=== PATIENT | female | born 1985 | race Hispanic/Latino ===

== ENCOUNTER 2021-05-31 11:00 | Day surgery (SDC) | payer OTHER, SELFPAY ==
[2021-05-31] MEDS ORDERED: METHOTREXATE 75 MG/3 ML SYR IM ONE (12:00)
[2021-05-31 13:48] VITALS: O2SAT 100; BMI 29.8
[2021-05-31 13:51] VITALS: BP 113/70; TEMP 98.3
== END 2021-05-31 13:45 | disposition home or self-care (01) ==
LOC: DS 11:00
PROVIDERS: ATTEND Obstetrics & Gynecology
DX: O00.80 Other ectopic pregnancy without intrauterine pregnancy (principal)
CPT/HCPCS: 96372; J9260

== ENCOUNTER 2021-06-11 16:40 | Inpatient (IN) | payer OTHER, SELFPAY ==
[2021-06-11 17:21] LABS: Urine Blood 2+ (Negative); Urine Glucose Negative (Negative); Urine Protein Negative (Negative); Urine Specific Gravity 1.025 (1.005-1.030)
[2021-06-11 17:47] LABS: Absolute Lymphocytes (CBC) 1.6 K/uL (0.7-4.9); Basophils % 0.3 % (0-1.3); Hematocrit 41.6 % (36.0-45.0); Lymphocytes % 12.8 % (15.3-44.8); MPV 7.8 fL (7.6-11.3)
[2021-06-11 18:42] LABS: Potassium 3.5 mmol/L (3.5-5.1)
[2021-06-11 18:45] LABS: Urine Specific Gravity/Preg 1.025 (1.005-1.030)
--- NOTE | 2021-06-11 18:48 | RAD REPORT ---
EXAM DESCRIPTION: US - Pelvis Complete - 06/11/2021 6:14 pm CLINICAL HISTORY: diagnosed tubal , s/p methotrexate, abd pain Pelvic pain. COMPARISON: No comparisons FINDINGS: The uterus is normal in size, shape and echotexture. The uterus measures 8.5 x 5.3 x 4.5 c m. The endometrial stripe measures 11 mm, normal. Both ovaries are normal in size, shape and echotexture. The right ovary measures 2.0 x 1.9 x 2.0 cm. The left ovary measures 2.3 x 1.8 x 1.7 cm. 2.9 x 2.9 x 3.0 cm complex solid cystic left adnexal ma ss noted with peripheral blood flow. Normal Doppler blood flow was demonstrated to both ovaries. No significant pelvic ascites. IMPRESSION: 3.0 cm complex left adnexal mass noted most compatible with ectopic .No pelvic ascites.
--- NOTE | 2021-06-11 19:26 | EDPHYS ---
Physician Documentation [facility] Name: Kiya Rivera Age: 36 yrs Sex: Female : 1985 Arrival Date: 06/11/2021 Time: 16:41 Bed 13 Private MD: Sue Martino K ED Physician Daniel Sullivan HPI: 06/11 17:09 This 36 yrs old Female presents to ER via Ambulatory with complaints of rn Vaginal Bleeding, + Preg <12wks, Pelvic Pain. 17:09 The patient presents to the emergency department with abdominal pain, of the suprapubic rn area and left lower quadrant, that started vaginal bleeding. 17:10 The estimated gestational age is 8 weeks. course: care: private OB rn physician, Leakage of Fluid: none appreciated, Ultrasound: the patient had an ultrasound. Previous pregnancies: the patient has never been . The patient has not experienced similar symptoms in the past. The patient has been recently seen by a physician:. Patient reports received methotrexate 2 weeks ago for ectopic , was thought to be proximal left tubal implantation. Denies any abdominal pain or vaginal bleeding for the preceding 2 weeks after the shot but began to have small vaginal bleeding and increased left lower quadrant sharp pain that began today. No trauma. No fever. No urinary symptoms.. 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 - Social history:: Smoking status: Patient reports the use of cigarette tobacco products, denies chronic smoking, but will smoke occasionally, Smoking status: Patient reports the use of cigarette tobacco products, Patient uses street drugs, marijuana. - Family history:: not pertinent. - Hospitalizations: : No recent hospitalization is reported. ROS: 17:10 Constitutional: Negative for fever, chills, and weight loss, Eyes: Negative for injury, rn pain, redness, and discharge, Neck: Negative for injury, pain, and swelling, Cardiovascular: Negative for chest pain, palpitations, and edema, Respiratory: Negative for shortness of breath, cough, wheezing, and pleuritic chest pain, Abdomen/GI: + for abd pain and vaginal bleeding Back: Negative for injury and pain, : + vaginal bleeding MS/Extremity: Negative for injury and deformity, Skin: Negative for injury, rash, and discoloration, Neuro: Negative for headache, weakness, numbness, tingling, and seizure. Exam: 17:10 Constitutional: This is a well developed, well nourished patient who is awake, alert, rn apperas uncomfortable Head/Face: Normocephalic, atraumatic. Eyes: Periorbital areas with no swelling, redness, or edema. Cardiovascular: Regular rate and rhythm. No pulse deficits. Respiratory: Speaking full sentences. No increased work of breathing, no retractions or nasal flaring. Abdomen/GI: soft, + suprapubic and LLQ tenderness, no rebound. Skin: Warm, dry MS/ Extremity: Pulses equal, no cyanosis. Neuro: Awake and alert, GCS 15 Vital Signs: 16:48 BP 137 / 75; Pulse 85; Resp 18; Temp 97.7(T); Pulse Ox 100% ; Weight 83.91 kg; Height 5 6 ft. 6 in. (167.64 cm); Pain 10/10; 17:42 BP 109 / 56; Pulse 65; Resp 15; Pulse Ox 100% ; Pain 8/10; eo2 19:00 BP 98 / 55; Pulse 74; Resp 15; Pulse Ox 100% ; Pain 2/10; eo2 21:34 BP 105 / 56; Pulse 56; Resp 16 S; Temp 98.1(O); Pulse Ox 100% on R/A; Pain 0/10; bb 16:48 Body Mass Index 29.86 (83.91 kg, 167.64 cm) 6 MDM: 17:01 Patient medically screened. rn 17:10 Differential diagnosis: ectopic . Differential diagnosis: methotrexate adverse rn reaction, hemoperitoneum. Data reviewed: vital signs, nurses notes. Counseling: I had a detailed discussion with the patient and/or guardian regarding: the historical points, exam findings, and any diagnostic results supporting the discharge/admit diagnosis. ED course: Sent by Dr. Martino. . 18:14 ED course: Paged Dr. Martino, awaiting for call back.. rn 18:28 ED course: Consulted with Dr. Martino, will come see patient, requests keep her NPO.. rn 18:35 ED course: Pt's pain improved. . rn 18:55 Transition of care: After a detail discussion of the patient's case, care is rn transferred to Daniel Sullivan MD. 06/11 17:02 Order name: Abo/rh Typing; Complete Time: 18:50 rn 06/11 17:02 Order name: Basic Metabolic Panel; Complete Time: 18:50 rn 06/11 17:02 Order name: CBC with Diff; Complete Time: 18:11 rn 06/11 17:02 Order name: Quantitative Hcg; Complete Time: 18:50 rn 06/11 17:21 Order name: Urine Dipstick-Ancillary; Complete Time: 17:31 EDMT 06/11 17:24 Order name: Urine --Ancillary (enter results); Complete Time: 18:50 bd 06/11 17:02 Order name: IV Saline Lock; Complete Time: 17:31 rn 06/11 17:02 Order name: Labs collected and sent; Complete Time: 17:31 rn 06/11 17:02 Order name: NPO; Complete Time: 17:14 rn 06/11 17:02 Order name: Urine Dipstick-Ancillary (obtain specimen); Complete Time: 17:21 rn 06/11 18:14 Order name: Pelvis Complete; Complete Time: 18:50 EDMT 06/11 19:12 Order name: COVID-19 SARS RT PCR (Document "Date of Onset" if Symptomatic) mw2 Administered Medications: No medications were administered Disposition Summary: 06/11/21 19:26 Hospitalization Ordered Hospitalization Status: Observation rajiv Provider: Sue Martino cha [facility] rajiv Condition: Fair rajiv Problem: an ongoing problem rajiv Symptoms: have worsened rajiv Bed/Room Type: [facility] Room Assignment: 271-(06/11/21 19:48) Diagnosis - Abdominal tenderness rajiv - Other ectopic without intrauterine rajiv Forms: - Medication Reconciliation Form rajiv - SBAR form rajiv Signatures: Dispatcher [employer] EDDaniel Dickerson MD MD cha Nieto, Roman, MD MD rn Garcia, Cindy RN RN Arielle Novak RN RN 6 Isa Anand RN RN eo2 Corrections: (The following items were deleted from the chart) 18:14 17:02 Transvaginal Ob+US.RAD.BRZ ordered. EDMS EDMS 19:48 19:26 rajiv sauer
--- NOTE | 2021-06-11 19:26 | ER ---
Nurse's Notes [facility] Name: Kiya Rivera Age: 36 yrs Sex: Female : 1985 Arrival Date: 06/11/2021 Time: 16:41 Bed 13 Private MD: Sue Martino K Diagnosis: Abdominal tenderness;Other ectopic without intrauterine Presentation: 06/11 16:48 Coronavirus screen: Vaccine status: Patient reports being unvaccinated. Ebola Screen: [facility] No symptoms or risks identified at this time. Initial Sepsis Screen: Does the patient meet any 2 criteria? No. Patient's initial sepsis screen is negative. Does the patient have a suspected source of infection? No. Patient's initial sepsis screen is negative. Risk Assessment: Do you want to hurt yourself or someone else? Patient reports no desire to harm self or others. Onset of symptoms was June 10, 2021. 16:48 Method Of Arrival: Ambulatory [facility] 16:48 Acuity: MERE 2 [facility] Triage Assessment: 16:53 General: Appears uncomfortable, well groomed, Behavior is calm, cooperative. Pain: [facility] Complains of pain in left lower quadrant Pain currently is 10 out of 10 on a pain scale. Quality of pain is described as sharp, Pain began gradually, Is continuous. : No deficits noted. 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 - Social history:: Smoking status: Patient reports the use of cigarette tobacco products, denies chronic smoking, but will smoke occasionally, Smoking status: Patient reports the use of cigarette tobacco products, Patient uses street drugs, marijuana. - Family history:: not pertinent. - Hospitalizations: : No recent hospitalization is reported. Screenin:32 Abuse screen: Denies threats or abuse. Nutritional screening: No deficits noted. eo2 Tuberculosis screening: No symptoms or risk factors identified. Fall Risk None identified. Assessment: 17:32 General: Appears in no apparent distress. Behavior is calm, cooperative. Pain: eo2 Complains of pain in abdomen Pain began 1 day ago. 17:32 Obstetrical Assessment: General assessment: awake and alert, Pt reports , dx'ed eo2 with ectopic and given methotrexate two weeks ago, states she began bleeding last night, using tampons, no pad count per hour, reports lower abdominal pain, denies CP, SOB, HEDRICK, Dizziness, N/V/D. . Neuro: No deficits noted. Neuro: Denies. Cardiovascular: No deficits noted. Cardiovascular: Denies. Respiratory: No deficits noted. Breath sounds are clear bilaterally. GI: Reports lower abdominal pain, Pain is 8 out of 10 on a pain scale. : No deficits noted. Denies. 21:27 Reassessment: report given to receiving RN in L\T\D for room 271. bb 21:34 Reassessment: Patient is alert, oriented x 3, equal unlabored respirations, skin bb warm/dry/pink. IV site to right AC intact with no erythema or edema. Pt denies pain at this time. Vital Signs: 16:48 BP 137 / 75; Pulse 85; Resp 18; Temp 97.7(T); Pulse Ox 100% ; Weight 83.91 kg; Height 5 jh6 ft. 6 in. (167.64 cm); Pain 10/10; 17:42 BP 109 / 56; Pulse 65; Resp 15; Pulse Ox 100% ; Pain 8/10; eo2 19:00 BP 98 / 55; Pulse 74; Resp 15; Pulse Ox 100% ; Pain 2/10; eo2 21:34 BP 105 / 56; Pulse 56; Resp 16 S; Temp 98.1(O); Pulse Ox 100% on R/A; Pain 0/10; bb 16:48 Body Mass Index 29.86 (83.91 kg, 167.64 cm) 6 ED Course: 16:41 Patient arrived in ED. am2 16:41 Sue Martino MD is Private Physician. am2 16:52 Triage completed. jh6 16:54 Arm band placed on left wrist. jh6 17:00 Kim Marcano RN is Primary Nurse. ap3 17:01 Dallas Feliciano MD is Attending Physician. rn 17:30 Isa Anand RN is Primary Nurse. eo2 17:30 Abo/rh Typing Sent. eo2 17:30 Basic Metabolic Panel Sent. eo2 17:30 CBC with Diff Sent. eo2 17:31 Quantitative Hcg Sent. eo2 17:32 Awaiting lab results. eo2 17:32 Placed in gown. Bed in low position. Call light in reach. Door closed. Noise minimized. eo2 Visitors limited. 17:32 Inserted saline lock: 20 gauge in right antecubital area, using aseptic technique. eo2 Blood collected. 18:14 Pelvis Complete In Process Unspecified. EDMS 19:08 Report given to Ny KAM. eo2 19:17 Attending Physician role handed off by Dallas Feliciano MD rajiv 19:17 Daniel Sullivan MD is Attending Physician. rajiv 19:21 Sue Martino MD is Hospitalizing Provider. rajiv Administered Medications: No medications were administered Outcome: 19:26 Decision to Hospitalize by Provider. rajiv 21:47 Patient left the ED. bb Signatures: Dispatcher [employer] EDMS Daniel Sullivan MD MD cha Ballard, Brenda RN RN bb Dallas Feliciano MD MD rn Moreno, Amanda am2 Prokisch, Amanda, RN RN ap3 Arielle Chamberlain RN RN jh6 Isa Anand RN RN eo2 Corrections: (The following items were deleted from the chart) 19:02 16:48 Chief complaint: Patient states: aprox 8 weeks pt that was told she had hedrick a tubal last week. was given methotrexate and was without pain or bleeding until today. pt reporting minor vag bleeding but increased l lower abd pain jh6
[2021-06-11] MEDS ORDERED: METHOTREXATE 75 MG/3 ML SYR IM ONE (22:00)
[2021-06-11 22:29] VITALS: O2SAT 100
[2021-06-11 23:06] VITALS: BMI 29.4
[2021-06-12] MEDS ORDERED: ACETAMINOPHEN 500 MG TAB PO PRN (06:29)
[2021-06-12] MEDS ORDERED: D5 0.45 NS 1,000 ML IV SCH (06:29)
[2021-06-12] MEDS ORDERED: ONDANSETRON 4 MG/2 ML VIAL IV PRN (06:29)
[2021-06-12] MEDS ORDERED: NA CHLORIDE 0.9% 1,000 ML IV ONE (06:35)
[2021-06-12 07:39] LABS: Absolute Lymphocytes (CBC) 1.4 K/uL (0.7-4.9); Basophils % 0.2 % (0-1.3); Hematocrit 38.1 % (36.0-45.0); Lymphocytes % 21.2 % (15.3-44.8); MPV 7.4 fL (7.6-11.3); RBC Red Blood Cell Count 4.44 M/uL (3.86-4.86)
[2021-06-12 16:40] LABS: ALT/SGPT 18 U/L (12-78); AST/SGOT 9 U/L (15-37); Alkaline Phosphatase 59 U/L (45-117); BUN Blood Urea Nitrogen 9 mg/dL (7-18); Bicarbonate 22 mmol/L (21-32); Bilirubin Direct 0.1 mg/dL (0-0.2); Bilirubin Total 0.4 mg/dL (0.2-1.0); Glucose Level 83 mg/dL (74-106); Lipase 40 U/L (73-393); Potassium 3.8 mmol/L (3.5-5.1); Protein, Total 6.8 g/dL (6.4-8.2); Sodium Level 139 mmol/L (136-145)
--- NOTE | 2021-06-12 19:51 | HP ---
Date of Admission: 06/11/2021 Admission Diagnoses: 1. Left cornual ectopic . 2. Pelvic pain. 3. Irregular vaginal bleeding. History Of Present Illness: The patient is a 36-year-old 1, para 0, with a cornual ectopic diagnosed by transvaginal ultrasound. There was a gestational sac with a yolk sac but no pole, 5 mm of myometrium was seen all around. Her initial quantitative HCG on May 30 was 11,534. All her blood count, BMP were all checked. Baseline normal. Discussed about the options of treatment including surgical and medical. At this time, patient was completely asymptomatic, and she wanted to proceed with treatment with methotrexate medically. So this is a complete nonviable and it was an ectopic , instead of subject the patient to a surgical removal, which would include removal of her tubes. It was decided to give her methotrexate. So after calculating the dosage, she was given 97 mg of methotrexate in Day Surgery the following day and she has done well. Has occasional mild pelvic pain, but did well on day #4. Repeat HCG was done. This level was about 12,000. Then on day #7, her hCG level was drawn to look at response to the methotrexate treatment and that was on 06/07/2010. Then her hCG level dropped close to 14%, it was 9668. So at this time, I reviewed the labs with the patient, discussed that it is very close to 15% of expected drop, and at this time, the patient was asymptomatic, had not had any bleeding either. Thus patient decided to observe without any further dosing with every week hCG level monitoring until it was off. However after that plan was made, day #11, started having suprapubic pain severe enough to take ibuprofen and naproxen at home and despite rest, her pain got escalated to at least a 10/10 at which time she was brought to the hospital. Most of the pain at the time she came to the hospital was suprapubic, slightly on the left side at times. Did have some bleeding by the time she came, not heavy. Her hCG was done at the hospital and the quant was 6081. She did not have any nausea or vomiting. No other bowel problems or urinary problems. Review of Systems: Negative. Past Medical History: None. Past Surgical History: Bartlett teeth extraction. 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 Patient has used contraceptives in the recent past. HPV vaccination was complete and no abnormal Pap smears. 1, para 0. Allergies: CLINDAMYCIN, DOXYCYCLINE. SHE HAS RASHES AND THEN HYDROCODONE CAUSES NAUSEA AND VOMITING. Physical Examination: Vital Signs: They were completely stable. She was afebrile. Pulse in the 60s to 70s and blood pressure normal. Respiratory rate about 18 to 20 and saturating well on room air. On exam, no pallor. No diaphoresis. Head and Neck: Exam normal. Lungs: Clear. Abdomen: Soft, nondistended, minimally tender in the suprapubic to left lower quadrant. No rebound. No masses, hepatomegaly or splenomegaly or hernias. PELVIC: Exam was deferred as the patient was in the ER. EXTREMITIES: Exam unremarkable. Radiology: A report for the ultrasound was not available. I reviewed the images and there appeared to be ectopic left cornual/proximal tubal mass, just gestational sac but no evidence of any pole. No evidence of any free fluid in the pelvic cavity. Uterus was empty as well. No other adnexal masses. Assessment And Plan: 1. Left cornual ectopic , treated with methotrexate 11 days ago. Patient presented with new onset sudden pain. This needs close monitoring to rule out the rupture. Her pain had dramatically gotten better from 10/10 to 2/10, spontaneously without any pain medication. Then her hCG level has dropped from 9668 to 6081 over a period of 4 days, which is a pretty significant drop without any radiologic evodence of rupture clinically without any peritoneal signs on close examination and follow up for at least 1 or 2 days in the hospital. With repeat dose of methotrexate was deemed to be reasonable. Discussed with the patient. The patient wanted to proceed with this, so ordered the same 97 mg of methotrexate. 2. Pelvic pain. This is most likely from cramping and probably beginning to start clear. Could also be rupture. However, this did not have any radiologic or clinical signs of a hemoperitoneum. Therefore, plan is to do serial exams and observe. 3. Irregular periods. This is probably withdrawal bleeding from the withdrawal of the implantation material. So, we will watch. If she needs a D and C, then something that could be done to evacuate hysteroscopically the tissue, however, the risk of corneal perforation is high, so we preferred to wait and conservatively manage the patient. Plan is to do a CBC in the morning, which was done again and then proceed in 48 hours to make sure that the hCG level was better that methotrexate was being tolerated that she does not bleed significantly enough to need a D and C. Note for today my nurse practitioner had seen her this morning. Pain was very insignificant. Has been doing well. She was given some diet in the morning. She did tolerate that and then she was kept n.p.o. after that. IV hydration was given, which was given over night due to problem with the orders. Doing well. No pain medication, observation, serial and exams. If her bleeding does get wore and there are a lot of clots, we will repeat an ultrasound in the morning and then discharge plan will be made. NANETTE Voice ID: [id number] MTDD
[2021-06-13] MEDS ORDERED: Ringers Lactate 0 ML IV ONE (08:10)
--- NOTE | 2021-06-13 09:09 | RAD REPORT ---
EXAM DESCRIPTION: US - Pelvis Complete - 06/13/2021 8:41 am CLINICAL HISTORY: Ectopic COMPARISON: June 11, 2021 FINDINGS: The uterus measures 8 x 5 x 7 centimeters. Endometrial stripe unremarkable. The ovaries are normal in size and echotexture. Right adnexa unremarkable 3.2 centimeter mass within the left adnexa is mildly enlarged. Previously it measured 3 centimeters. No significant free fluid is seen. IMPRESSION: 3.2 centimeter left adnexal mass presumably an ectopic mildly enlarged from th e prior exam. No significant free fluid
[2021-06-13 13:20] VITALS: BP 115/70; TEMP 98.9
== END 2021-06-13 13:15 | disposition home or self-care (01) | DRG 833 ==
LOC: ER 16:40 → ERHOLD 19:35 → 2ND-WC 20:49 → OBSVTOIN 06-13 08:39
PROVIDERS: ADMIT Obstetrics & Gynecology; ATTEND Obstetrics & Gynecology
DX: O00.80 Other ectopic pregnancy without intrauterine pregnancy (principal); N93.9 Abnormal uterine and vaginal bleeding, unspecified; F17.210 Nicotine dependence, cigarettes, uncomplicated; Z88.5 Allergy status to narcotic agent; Z88.1 Allergy status to other antibiotic agents; Z20.822 Contact with and (suspected) exposure to COVID-19
CPT/HCPCS: 36415; 76856; 80048; 80076; 81003; 81025; 83690; 84702; 85025; 86900; 86901; 99283; G0378; J7030; J7120; J7799; J9260; U0003

== ENCOUNTER 2021-07-11 11:31 | Day surgery (SDC) | payer OTHER ==
[~2021-07-11 11:31] MED LIST: Ringers Lactate 1,000 ML IV SCH; miSOPROStoL 100 MCG TAB PR SCH
[2021-07-11 12:06] VITALS: O2SAT 100
[2021-07-11 12:32] LABS: Specific Gravity 1.025 (1.005-1.030)
[2021-07-11] MEDS ORDERED: Ringers Lactate 1,000 ML IV ONE (12:34)
[2021-07-11] MEDS ORDERED: ACETAMINOPHEN 500 MG TAB ONE (13:02)
[2021-07-11] MEDS ORDERED: CELECOXIB 100 MG CAPSULE ONE (13:02)
[2021-07-11] MEDS ORDERED: ACETAMINOPHEN 500 MG TAB PO ONE (13:08)
[2021-07-11] MEDS ORDERED: CELECOXIB 100 MG CAPSULE PO ONE (13:08)
[2021-07-11] MEDS ORDERED: propofoL 200 MG/20 ML VIAL IV ONE (13:52)
[2021-07-11] MEDS ORDERED: MIDAZOLAM HCL 2 MG/2 ML INJ ONE (13:52)
[2021-07-11] MEDS ORDERED: LIDOCAINE 2% MPF 5 ML VIAL ONE (13:52)
[2021-07-11] MEDS ORDERED: FENTANYL CITR 100 MCG/2 ML ONE (13:52)
[2021-07-11] MEDS ORDERED: SILVER NITRATE 1 APPL TOP ONE (13:53)
[2021-07-11] MEDS ORDERED: LIDOCAINE 1% W/EPI 1:100,000 MDV 20 ML VIAL ONE (13:53)
[2021-07-11] MEDS ORDERED: KETOROLAC 30 MG/ML INJ ONE (14:28)
[2021-07-11] MEDS ORDERED: ONDANSETRON 4 MG/2 ML VIAL ONE (14:28)
[2021-07-11] MEDS ORDERED: dexAMETHasone 10 MG/ML VIAL ONE (14:29)
[2021-07-11] MEDS ORDERED: miSOPROStoL 100 MCG TAB ONE ×2 (16:03→16:04)
[2021-07-11] MEDS ORDERED: CEFAZOLIN SODIUM 1 GM/VIAL ONE (16:08)
[2021-07-11] MEDS ORDERED: METHYLERGONOVINE 0.2MG/ML AMP IM ONE (16:11)
[2021-07-11] MEDS ORDERED: IBUPROFEN 200 MG TAB PO PRN (17:29)
--- NOTE | 2021-07-11 17:33 | P.BOP ---
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
[2021-07-11] MEDS ORDERED: IBUPROFEN 200 MG TAB PO ONE (17:44)
[2021-07-11] MEDS ORDERED: IBUPROFEN 400 MG TAB ONE (17:44)
[2021-07-11 18:02] VITALS: BP 111/70; TEMP 98.1
--- NOTE | 2021-07-12 23:56 | OP ---
Date of Procedure: 07/11/2021 Surgeon: Sue Martino MD Education Trainer: No assistants. Preoperative Diagnoses: Left lower quadrant pain, left cornual ectopic . Postoperative Diagnoses: Left lower quadrant pain; left tubal ectopic , resolving. No corn ual ectopic seen. Procedures Performed: Hysteroscopy, D and C. Anesthesia: General with LMA. Specimens: Endometrial curettings. Complications: No complications. Drains: No drains. Estimated Blood Loss: Minimal. Findings: Cavity was well visualized. No abnormal tissue was noted inside the cavity. Both tubal o stia were visualized and were normal. No cornual ectopic was noted. Indications: The patient is a 36-year-old 1, para 0, who has been diagnosed with an ectopic . The left cornual was suspected. She was treated with methotrexate. She has servin d mild left lower quadrant pain that has not intensified, but has remained unchanged and the ultrasou nd findings of left possible cornual has remained without change despite the hCG levels com ing all the way down from 11,000 after 2 doses of methotrexate to the level of single digit, 6. So, concern was for tissue that could be persistent and possibly needed evacuation manually wi th D and C and so was consented for hysteroscopy, possible D and C with either curette or MyoSure dev ice. Procedure In Detail: She was consented and taken back to the OR and 2 g of Ancef were given. SCDs w ere placed. She was placed in supine fashion on the operating table. General anesthesia was given. Placed in a dorsal lithotomy position using Roddy stirrups. Vulva, vagina, and perineum prepped and draped in a sterile fashion. Speculum placed to expose the cervix. Anterior lip grasped with Allis clamps. A 30-degree lens was used with normal saline to traverse the cervical canal under direct vi steffany into the uterine cavity. The cavity was visualized. Then there was no distortion. No intracav itary masses were seen. Both tubal ostia were well visualized and there was no gestational tissue or any abnormal tissue noted. Normal endometrial tissue was noted. No bulging or enlargement of the l eft tubal ostium was noted excluding an ectopic cornual . The scope was removed. Endometrial curettings were performed with a #0 curette. The tissue was hand ed off for permanent pathology. Instruments were removed. Instrument, needle, and sponge counts wer e correct at the end of the case and the patient was recovered from anesthesia in the operating room and taken to the PACU in a stable condition. EBL was minimal. Instrument, needle, and sponge counts were correct. The patient will be seen back in the office after 1 week hCG level check and she will continue to do 4 weekly hCG levels quantitative to ensure that there is no increase or persistence. 4-week postop transvaginal ultrasound will be performed to assess the presence of trophoblastic gest ational tissue. If this is still present, this has to be assumed that this would be in the proximal to very close in proximity to the uterus. If this cannot be expelled through the ostial side and it has a long distance to travel to be aborted out the fimbriated end. This may require a salpingectomy . Given the high probability that there was an occlusion at this level, which in first place led to the ectopic , it may be appropriate management of risk for prevention of future ectopic pre gnancies. She will be seen in a week and we will discuss the plan with the patient and all the ultra sound and hCG levels will be ordered and followed accordingly. The findings were explained to the patient when she was awake. The plan was to be discharged home e same day. EDIS/PADDY Voice ID: [id number] Report ID: [id number]
== END 2021-07-11 18:00 | disposition home or self-care (01) ==
LOC: OR 11:31
PROVIDERS: ATTEND Obstetrics & Gynecology
PROC: 0UJD8ZZ Inspection of Uterus and Cervix, Via Natural or Artificial Opening Endoscopic (ICD-10-PCS; 2021-07-11)
PROC: 0UDB7ZX Extraction of Endometrium, Via Natural or Artificial Opening, Diagnostic (ICD-10-PCS; principal; 2021-07-11 14:00)
DX: O00.80 Other ectopic pregnancy without intrauterine pregnancy (principal); R10.32 Left lower quadrant pain; Z20.822 Contact with and (suspected) exposure to COVID-19
CPT/HCPCS: 81025; 88305; 58558; U0003; J2704; J2250; J3010; J1100; J7120; J2405; J0690; J2210

== ENCOUNTER 2021-09-10 09:01 | Day surgery (SDC) | payer BC, OTHER ==
[2021-09-04 10:37] LABS: Absolute Lymphocytes (CBC) 1.5 K/uL (0.7-4.9); Hematocrit 40.2 % (36.0-45.0); Lymphocytes % 24.1 % (15.3-44.8); MPV 7.4 fL (7.6-11.3); RBC Red Blood Cell Count 4.85 M/uL (3.86-4.86)
[2021-09-04 10:51] LABS: Urine Appearance CLEAR (Clear); Urine Bilirubin NEGATIVE (Negative); Urine Blood TRACE (Negative); Urine Color YELLOW (Yellow); Urine Glucose NEGATIVE (Negative); Urine Protein NEGATIVE (Negative); Urine Urobilinogen 0.2 mg/dL (0.2-1.0)
[2021-09-04 11:01] LABS: Urine Microscopic Reflex ORDER UMIC
[2021-09-04 11:02] LABS: Urine Bacteria NONE SEEN /HPF (<20); Urine RBC <5 /HPF (NONE SEEN)
[2021-09-10] MEDS ORDERED: LIDOCAINE 1% MPF 5 ML VIAL ONE (09:24)
[2021-09-10] MEDS ORDERED: MIDAZOLAM HCL 2 MG/2 ML INJ ONE (09:24)
[2021-09-10] MEDS ORDERED: dexAMETHasone 10 MG/ML VIAL ONE (09:24)
[2021-09-10] MEDS ORDERED: FENTANYL CITR 100 MCG/2 ML ONE ×3 (09:24→12:18)
[2021-09-10] MEDS ORDERED: propofoL 200 MG/20 ML VIAL IV ONE (09:24)
[2021-09-10] MEDS ORDERED: ROCURONIUM 50 MG/5 ML VIAL IV ONE ×2 (09:25→12:26)
[2021-09-10] MEDS ORDERED: ONDANSETRON 4 MG/2 ML VIAL ONE (09:25)
[2021-09-10] MEDS ORDERED: Ringers Lactate 1,000 ML IV ONE ×2 (09:29→12:20)
[2021-09-10] MEDS ORDERED: SCOPOLAMINE HYDROBROMIDE PATCH TD ONE (09:29)
[2021-09-10] MEDS ORDERED: CELECOXIB 100 MG CAPSULE ONE (09:44)
[2021-09-10] MEDS ORDERED: ACETAMINOPHEN 500 MG TAB ONE (09:45)
[2021-09-10] MEDS: BUPIVACAINE 0.25% PF 10 ML VIAL ONE ×2 (10:54→11:28)
[2021-09-10] MEDS ORDERED: METHYLENE BLUE 0.5% 10 ML AMP ONE (11:33)
[2021-09-10] MEDS ORDERED: NS 0.9% VIAL 30 ML ONE (11:59)
[2021-09-10] MEDS ORDERED: VASOPRESSIN 20 UNIT/ML VIAL ONE (12:00)
[2021-09-10] MEDS ORDERED: NEOSTIGMINE 1 MG/ML -5 ML ONE (12:54)
[2021-09-10] MEDS ORDERED: KETOROLAC 30 MG/ML INJ ONE (12:54)
[2021-09-10] MEDS ORDERED: GLYCOPYRROLATE 0.2 MG/ML SYR ONE (12:54)
[2021-09-10] MEDS ORDERED: HYDROCODONE/APAP 5/325 MG TAB PO PRN (13:29)
[2021-09-10] MEDS ORDERED: IBUPROFEN 200 MG TAB PO PRN (13:29)
[2021-09-10] MEDS ORDERED: PROMETHAZINE INJ 25 MG/ML AMP IV PRN (13:29)
[2021-09-10] MEDS ORDERED: MEPERIDINE HCL 25 MG/ML SYR IM PRN (13:29)
--- NOTE | 2021-09-10 13:36 | P.BOP ---
Preoperative diagnosis: LLQ pain, h/o left ectopic preg, Left tubal mass Postoperative diagnosis: same,bilat tubo-ovarian adhesions,Right tubal occlusion Primary procedure: Diag laparoscopy,Bilat salpingo-ovariolysis,Left salpingectomy Secondary procedure: excision of tubal massfrom the isthmic portion+uterine repair Other procedure(s): lysis of sigmoid adhesions Commission Sales Associate: Sandra Barnett Estimated blood loss: min Specimen: left tube with mass, adhesions of rt tube and bilat tubo-ov adhesions Findings: Rt tube occluded, Left isthmic mass, right isthmic mass? nodular,smaller Anesthesia: General Complications: None Fluids & blood products: 1100LR, UO 200, EBL min Transferred to: Recovery Room Condition: Good
[2021-09-10] MEDS: HYDROMORPHONE HCL 1 MG/ML INJ ONE ×2 (13:59→14:04)
[2021-09-10] MEDS ORDERED: MEPERIDINE HCL 25 MG/ML SYR ONE (15:24)
[2021-09-10 15:40] VITALS: BP 114/66; TEMP 97.5; O2SAT 100
--- NOTE | 2021-09-11 03:16 | OP ---
Date of Procedure: 09/10/2021 Surgeon: Sue Martino MD [employer] Technician: Sandra Alvarado Preoperative Diagnoses: Left lower quadrant pain. History of left ectopic . Left tubal ma ss. Postoperative Diagnoses: Left lower quadrant pain. History of left ectopic . Left tubal m ass. 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 Sigmoi d adhesions. Procedures Performed: Diagnostic laparoscopy, extensive bilateral salpingo-ovariolysis, left salping ectomy, excision of left cornual/isthmic mass and repair of the uterus, chromotubation, and lysis of sigmoid adhesions. Estimated Blood Loss: Minimal. Specimens: Left tube with mass, adhesions of right tube, and bilateral tubo-ovarian adhesions. Anesthesia: General endotracheal. Complications: No complications. Drains: No drains. Patient's Condition: Stable. Findings: On chromotubation, the right tube was occluded. The left tube was patent. However, the l eft large mass on the proximal part of the tube and the isthmus were connected to the uterus, so most likely instead of a cornual mass, it could be an isthmic mass. The tube was removed. The mass was excised by injecting vasopressin around and performing a wedge resection essentially to remove the ma ss. 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 Then, bilateral ovarian adhesions were taken down as these were attached to the posterior broad ligament, lateral wall, sigmoid colon and sigmoid colon was also attached to t he posterior cul-de-sac, bilateral uterosacral ligaments, lateral rogel, and all these were released to the anterior abdominal wall as well. 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 There was a small left lobe hemangioma on the liver. The right tube was clubbed at the distal end, which was opened and chromotubation was performed and there was a spill at this time. The ovaries were completely intact. Uterus intact. The right tube was intact at the end of the proc edure. Estimated Blood Loss: Minimal. Urine Output: 200 Fluids: 1100 Disposition: The patient was transferred to the recovery room in stable condition. Indications: The patient is a 36-year-old young female, 1, para 0-0-1-0, treated for left ec topic after her positive test, which was followed by an ultrasound that showed aguilera spected in ectopic location, which appeared to be initially a cornual . On following this with quants and treating with methotrexate, 2 doses of this, her quants have defini tely come down. Her pain has consistently remained unchanged. Close to the resolution of the hCG le vels, she had a hysteroscopy done to see if it was opened into the uterus and the entire cavity appea red to be completely unremarkable, so she was recovered from that and now she was brought back [facility] that there was a left tubal mass. The patient was consented for chromotubation checking the right tube patency before the tube was lida sharad on the left side. The patient was consented that the left tube would be removed with the mass no matter what and then the right tube would be opened up if there is occlusion seen, and all other nee ded procedures to be performed. Description Of Procedure: After informed consent was verified, she was taken back to OR, placed in a supine fashion on the operating table. General anesthesia was given. Placed in a dorsal lithotomy position in Roddy stirrups. Vulva, vagina, and perineum were prepped and draped in a sterile fashion . Uterine manipulator was introduced into the uterus. Allen was placed to drain the bladder and att ached to a drainage bag. This area was then draped. 1 cm infraumbilical incision was made with the scalpel using the open laparoscopy technique. Fascia was incised, tagged with 0 Vicryl sutures, and peritoneum entered sharply. After S retractors were p laced and the Armani was introduced, adequate insufflation was performed and site of entry was checke d, unremarkable. Next, upper abdominal cavity survey revealed the small hemangioma and all the findi ngs as dictated above. The patient was placed in a steep Trendelenburg position and pelvic cavity ex amined to find the findings as above. A 5 suprapubic and the left lower quadrant ports were placed under direct vision. As soon as the por ts were placed, chromotubation was performed with dilute methylene blue. The left tube filled and sp illed without any delay. The right tube filled as well, but there was clubbing at the fimbriated end that prevented from spillage, so the clubbing was addressed. After taking the adhesions down and op ening up, there was repeat chromotubation, where there was patency of the right tube. Although the tube appeared to be nodular and there was a proximal nodular lesion, very similar likely to the left side, this was left intact and in place as the tube was opened up. Then, both ovarian adhesions were taken down, the sigmoid adhesions were taken down with all sharp di ssection from the posterior cul-de-sac carefully from the lateral wall to the anterior abdominal wall . Then the tube on the left side was taken down with the help of the LigaSure all the way to the pro ximal end, where there was significant dilatation and nodularity in the proximal part of the tube, is thmic portion of the tube, and probably extending into the cornual. Decision was made to excise this as a wedge resection, so went ahead and used dilute vasopressin 20 u nits in 20 cc of normal saline, and injected 20 all around the base of the nodular lesion into the ut erus for hemostasis and monopolar scissors were used to perform a circumferential incision on the ser tee myometrium and then wedge resection all the way down to the base of the lesion. Once this was do ne, the mass and the tube were removed on bloc and left in the anterior cul-de-sac. 2-0 V-Loc was then taken in a continuous running fashion. Two-layer closure was performed to close t he defect. This was done to prevent any uterine rupture at the time of . The tube and the mass were placed in the Endo Catch bag, placed through the umbilical port. The umbi lical incision was extended when removing the specimen later on. Thorough irrigation and suction per formed. There was good peristalsis of the ureters. No evidence of any trauma anywhere else. All th e trocars removed after gas desufflated and injected with dilute vasopressin at both the incisions. The 5 port in the right lower quadrant was changed to an 8 port for me to be able to pass a needle fr om this. All these were closed with the help of interrupted chromic sutures. Fascia at the umbilicu s was slightly extended and then closed with the help of two [id number] 0 Vicryl sutures. Subcu ticular closure was done with 4-0 chromic here at the umbilicus. The uterine manipulator and Allen w ere removed. Instrument, needle, and sponge counts were correct at the end of the case. The patient tolerated the procedure well. She was recovered from anesthesia and taken to PACU in stable conditi on. EDIS/PADDY Voice ID: [id number] Report ID: [id number]
[2021-09-11] MEDS ORDERED: ETHINYL ESTRADIOL PO SCH (09:00)
[2021-09-11] MEDS ORDERED: DROSPIRENONE PO SCH (09:00)
[2021-09-11] MEDS ORDERED: [UNRECOGNIZED DRUG - OTHER] PO SCH (09:00)
[2021-09-11] MEDS ORDERED: HOME MED 1 EA UNK (L.Acidoph,Paracasei, B.Lactis [Probiotic] Capsule) PO SCH (09:00)
[2021-09-11] MEDS ORDERED: HOME MED 1 EA UNK (Phentermine Hcl [Adipex-P] 37.5 MG Tablet) PO SCH (09:00)
== END 2021-09-10 15:52 | disposition home or self-care (01) ==
LOC: OR 09:01
PROVIDERS: ATTEND Obstetrics & Gynecology
PROC: 10T24ZZ Resection of Products of Conception, Ectopic, Percutaneous Endoscopic Approach (ICD-10-PCS; 2021-09-10)
PROC: 0UT64ZZ Resection of Left Fallopian Tube, Percutaneous Endoscopic Approach (ICD-10-PCS; 2021-09-10)
PROC: 0UN24ZZ Release Bilateral Ovaries, Percutaneous Endoscopic Approach (ICD-10-PCS; principal; 2021-09-10 10:30)
DX: O00.102 Left tubal pregnancy without intrauterine pregnancy (principal); R10.32 Left lower quadrant pain; N83.8 Other noninflammatory disorders of ovary, fallopian tube and broad ligament; Z20.822 Contact with and (suspected) exposure to COVID-19
CPT/HCPCS: 58660; 59151; 85025; 36415; 86900; 86850; 81025; 86901; 88304; 88305; U0003; J2704; J2250; J3010 ×3; J1100; J2175; J1170; J2710; J7120 ×2; J2405; 81003; 81015